=== PATIENT | female | born 1965 | race African-American/Black ===

== ENCOUNTER 2023-12-30 09:44 | Inpatient (IN) | payer OTHER ==
[~2023-12-30] VITALS: Ht 167.6 cm; Wt 64.5 kg
[~2023-12-30 09:44] MED LIST: BENADRYL; CLONIDINE; DILANTIN; KLONOPIN
[2023-12-30 10:29] LABS: CHLORIDE 104 mEq/L (98-107); POTASSIUM 3.9 mEq/L (3.5-5.1); SODIUM 131 mEq/L (136-145)
[2023-12-30 10:30] LABS: CALCIUM 8.7 mg/dL (8.7-10.4); CARBON DIOXIDE 19 mEq/L (21-32)
[2023-12-30 10:35] LABS: GLUCOSE 117 mg/dL (70-105); TROPONIN I HIGH SENSITIVITY 22 ng/L (3.0-34); UREA NITROGEN BLOOD 10 mg/dL (9-23)
[2023-12-30 10:36] LABS: ALANINE AMINOTRANSFERASE 17 IU/L (10-49); ASPARTATE AMINOTRANSFERASE 21 IU/L (<34)
[2023-12-30 10:37] LABS: ALBUMIN 3.5 g/dL (3.2-4.8); BILIRUBIN DIRECT 0.3 mg/dL (<=3.0); BILIRUBIN TOTAL 0.8 mg/dL (0.1-1.0); PROTEIN TOTAL 9.6 g/dL (6.0-8.3)
[2023-12-30] MEDS: LACTATED RINGERS 1,000 ML IV SCH (10:37)
[2023-12-30 10:40] LABS: CREATININE 1.3 mg/dL (0.6-1.0)
[2023-12-30 11:37] LABS: HEMATOCRIT. 37.1 % (36.0-48.0); HEMOGLOBIN. 11.9 g/dL (12.0-16.0); MEAN CORPUSCULAR HEMOGLOBIN 28.6 pg (28.0-32.0); MEAN CORPUSCULAR HGB CONC 32.1 g/dL (31.0-37.0); MEAN CORPUSCULAR VOLUME 88.9 fL (81.0-99.0); MEAN PLATELET VOLUME 8.6 fl (7.4-10.4); PLATELET 304 x1000/uL (130-400); RED BLOOD CELL COUNT 4.17 mill/uL (4.2-5.4); RED CELL DISTRIBUTION WIDTH 14.1 % (11.6-14.6); WHITE BLOOD COUNT 28.6 x1000/uL (4.5-11.0)
[2023-12-30 11:42] LABS: DIFFERENTIAL COMMENT 1
[2023-12-30 12:30] LABS: TROPONIN I HIGH SENSITIVITY 21 ng/L (3.0-34)
[2023-12-30] MEDS ORDERED: LACTATED RINGERS 650 ML IV SCH (12:30)
[2023-12-30] MEDS: NOREPINEPHRINE 8MG/250ML PMX 250 ML IV ONE (12:46)
[2023-12-30] MEDS: VANCOMYCIN 1G PREMIX 200 ML IV SCH (13:01)
[2023-12-30 13:20] LABS: INR 1.3; PROTHROMBIN TIME 14.2 sec (9.6-11.0)
[2023-12-30] MEDS ORDERED: PIPERACILLIN/TAZO 3.375G/50ML 50 ML IV SCH (14:00)
[2023-12-30 14:10] LABS: PLATELET ESTIMATE NORMAL
[2023-12-30] MEDS ORDERED: IPRATROPIUM/ALBUTEROL 0.5-3(2.5)MG/3ML NEB HHN PRN (14:15)
[2023-12-30] MEDS ORDERED: DEXTROSE 50% WATER 50ML SYRINGE IV PRN (14:15)
[2023-12-30 14:25] LABS: CLARITY URINE CLEAR (CLEAR); COLOR URINE YELLOW (YELLOW); GLUCOSE URINE NEGATIVE (NEGATIVE); KETONES URINE NEGATIVE (NEGATIVE); LEUKOCYTE ESTERASE URINE NEGATIVE (NEGATIVE); NITRITE URINE NEGATIVE (NEGATIVE); OCCULT BLOOD URINE 2+ (NEGATIVE); PH URINE 5.5 (4.5-8.0); PROTEIN URINE NEGATIVE (NEGATIVE); SPECIFIC GRAVITY URINE 1.009 (1.005-1.030)
[2023-12-30 14:42] LABS: HYALINE CASTS URINE TNTC /lpf
[2023-12-30 14:44] LABS: COARSE GRANULAR CASTS URINE 0-5 /lpf; FINE GRANULAR CASTS URINE 0-5 /lpf
[2023-12-30 14:47] LABS: WBC URINE 0-2 /hpf (0-2)
[2023-12-30 14:48] LABS: BACTERIA URINE 1+; SQUAMOUS EPITHELIAL CELL URINE 1+ /lpf (RARE/1+)
[2023-12-30] MEDS: CLOPIDOGREL 75MG TABLET PO SCH (15:26)
[2023-12-30] MEDS: AZITHROMYCIN 500MG/250ML 250 ML IV SCH (15:26)
[2023-12-30] MEDS: ASPIRIN 81MG TABLET PO SCH (15:26)
[2023-12-30] MEDS: INSULIN LISPRO 100 UNITS/ML SUBCUT SCH (16:00)
[2023-12-30] MEDS: BLOOD SUGAR DIAGNOSTIC STRIP TEST SCH (16:00)
[2023-12-30] MEDS: CEFEPIME 2GM/100ML 100 ML IV SCH (18:54)
[2023-12-30] MEDS: ATORVASTATIN CALCIUM 40MG TABLET PO SCH (21:00)
[2023-12-30 21:16] VITALS: BP 96/77; PULSE 100; RESP 21; TEMP 36.696
[2023-12-30] MEDS ORDERED: CEFEPIME 2GM IN DEXT 5% 100ML IV SCH (22:00)
[2023-12-30 22:46] VITALS: BP 106/84; PULSE 93; RESP 24; TEMP 36.6696; O2SAT 91
[2023-12-31] VITALS (7 sets, daily range): BP systolic 90–113; BP diastolic 67–87; PULSE 91–113; RESP 16–26; TEMP 36.78072–37.72524; O2SAT 89–95
[2023-12-31] MEDS: PANTOPRAZOLE SODIUM 40 MG/VIAL IV SCH (00:19)
[2023-12-31] MEDS: SODIUM CHLORIDE 0.9% 1,000 ML IV SCH (00:19)
[2023-12-31 16:24] LABS: BASOPHILS % 0.3 % (0.0-2.0); HEMATOCRIT. 35.4 % (36.0-48.0); HEMOGLOBIN. 11.6 g/dL (12.0-16.0); LYMPHOCYTES % 11.6 % (20.0-50.0); MEAN CORPUSCULAR HEMOGLOBIN 29.3 pg (28.0-32.0); MEAN CORPUSCULAR HGB CONC 32.9 g/dL (31.0-37.0); MEAN CORPUSCULAR VOLUME 89.1 fL (81.0-99.0); MEAN PLATELET VOLUME 8.9 fl (7.4-10.4); MONOCYTES % 8.6 % (2.0-8.0); NEUTROPHILS % 78.5 % (40.0-76.0); PLATELET 293 x1000/uL (130-400); RED BLOOD CELL COUNT 3.97 mill/uL (4.2-5.4); RED CELL DISTRIBUTION WIDTH 13.9 % (11.6-14.6); WHITE BLOOD COUNT 12.4 x1000/uL (4.5-11.0)
[2023-12-31 16:31] LABS: CHLORIDE 106 mEq/L (98-107); POTASSIUM 3.4 mEq/L (3.5-5.1); SODIUM 135 mEq/L (136-145)
[2023-12-31 16:32] LABS: CALCIUM 8.5 mg/dL (8.7-10.4); CARBON DIOXIDE 21 mEq/L (21-32)
[2023-12-31 16:37] LABS: CREATININE 0.7 mg/dL (0.6-1.0); GLUCOSE 84 mg/dL (70-105); UREA NITROGEN BLOOD 6 mg/dL (9-23)
[2023-12-31] MEDS: ENOXAPARIN 40MG/0.4ML SYR SUBCUT SCH (17:34)
[2023-12-31] MEDS ORDERED: LEVE500T19 PO (18:00)
[2023-12-31] MEDS: ATORVASTATIN CALCIUM 40MG TABLET PO SCH (20:16)
[2023-12-31] MEDS ORDERED: LEVETIRACETAM 500MG in NACL 100ML PREMIX IV SCH (21:00)
[2023-12-31] MEDS: LEVETIRACETAM 500MG PREMIX 100 ML IV SCH (21:41)
[2023-12-31] MEDS: VANCOMYCIN 1GM/200ML PMX (BAXTER) IV SCH (21:42)
[2024-01-01] VITALS (11 sets, daily range): BP systolic 89–104; BP diastolic 61–87; PULSE 86–109; RESP 17–29; TEMP 36.78072–37.00296; O2SAT 85–96
[2024-01-01] MEDS: CEFEPIME 2GM/100ML 100 ML IV SCH (14:18)
[2024-01-01] MEDS ORDERED: MIDODRINE HCL 5MG TABLET PO SCH (18:30)
[2024-01-02] VITALS: BP 98/74; PULSE 87; RESP 23; TEMP 36.83628; O2SAT 98
[2024-01-02 04:00] VITALS: BP 83/67; PULSE 95; RESP 18; TEMP 37.00296; O2SAT 96
[2024-01-02 06:28] LABS: BASOPHILS % 0.3 % (0.0-2.0); HEMATOCRIT. 34.2 % (36.0-48.0); HEMOGLOBIN. 11.2 g/dL (12.0-16.0); LYMPHOCYTES % 13.5 % (20.0-50.0); MEAN CORPUSCULAR HEMOGLOBIN 28.7 pg (28.0-32.0); MEAN CORPUSCULAR HGB CONC 32.8 g/dL (31.0-37.0); MEAN CORPUSCULAR VOLUME 87.5 fL (81.0-99.0); MEAN PLATELET VOLUME 8.3 fl (7.4-10.4); MONOCYTES % 9.6 % (2.0-8.0); NEUTROPHILS % 75.6 % (40.0-76.0); PLATELET 291 x1000/uL (130-400); RED BLOOD CELL COUNT 3.92 mill/uL (4.2-5.4); RED CELL DISTRIBUTION WIDTH 13.7 % (11.6-14.6); WHITE BLOOD COUNT 8.9 x1000/uL (4.5-11.0)
[2024-01-02 06:37] LABS: CHLORIDE 106 mEq/L (98-107); POTASSIUM 3.1 mEq/L (3.5-5.1); SODIUM 133 mEq/L (136-145)
[2024-01-02 06:38] LABS: CALCIUM 8.7 mg/dL (8.7-10.4); CARBON DIOXIDE 20 mEq/L (21-32)
[2024-01-02 06:43] LABS: CREATININE 0.7 mg/dL (0.6-1.0); GLUCOSE 127 mg/dL (70-105); UREA NITROGEN BLOOD 6 mg/dL (9-23)
[2024-01-02 08:00] VITALS: BP 103/83; PULSE 100; RESP 15; TEMP 37.00296; O2SAT 91
[2024-01-02] MEDS: FAMOTIDINE 20MG/2ML VIAL IV SCH (08:35)
[2024-01-02] MEDS ORDERED: FENTANYL CITRATE/PF 50MCG/ML 2ML VIAL ONE (09:28)
[2024-01-02] MEDS ORDERED: MIDAZOLAM HCL 2 MG/2 ML VIAL ONE ×2 (09:28→09:53)
[2024-01-02] MEDS ORDERED: TETRACAINE/BENZOCAINE/BUTAMBEN 20 GM SPRAY MM ONE (09:29)
[2024-01-02] MEDS ORDERED: LIDOCAINE 2% 6ML GLYDO MM ONE (09:36)
[2024-01-02] MEDS ORDERED: DIPHENHYDRAMINE 50MG/ML VIAL ONE (09:52)
[2024-01-02 11:58] VITALS: BP 98/73; PULSE 79; RESP 20; TEMP 36.33624; O2SAT 99
[2024-01-02] MEDS: VANCOMYCIN 750MG PREMIX 150 ML IV SCH (12:45)
[2024-01-02] MEDS: POTASSIUM CHLORIDE 20MEQ/PACKET PO NR (15:19)
[2024-01-02 16:00] VITALS: BP 96/75; PULSE 90; RESP 20; TEMP 37.05852
[2024-01-02 20:00] VITALS: BP 124/101; PULSE 102; RESP 19; TEMP 37.2252; O2SAT 98
[2024-01-03] VITALS (12 sets, daily range): BP systolic 85–119; BP diastolic 58–91; PULSE 86–194; RESP 16–25; TEMP 36.3918–36.55848; O2SAT 92–98
[2024-01-03] MEDS: QUETIAPINE FUMARATE 50MG TABLET PO SCH (17:37)
[2024-01-04] VITALS (7 sets, daily range): BP systolic 112–143; BP diastolic 71–97; PULSE 70–100; RESP 16–22; TEMP 36.05844–37.16964; O2SAT 94–99
[2024-01-04 16:13] LABS: BASOPHILS % 0.4 % (0.0-2.0); EOSINOPHILS % 1.1 % (0.0-5.0); HEMOGLOBIN. 11.1 g/dL (12.0-16.0); LYMPHOCYTES % 27.1 % (20.0-50.0); MEAN CORPUSCULAR HEMOGLOBIN 29.5 pg (28.0-32.0); MEAN CORPUSCULAR HGB CONC 33.7 g/dL (31.0-37.0); MEAN CORPUSCULAR VOLUME 87.6 fL (81.0-99.0); MEAN PLATELET VOLUME 8.5 fl (7.4-10.4); MONOCYTES % 11.3 % (2.0-8.0); NEUTROPHILS % 60.1 % (40.0-76.0); PLATELET 306 x1000/uL (130-400); RED BLOOD CELL COUNT 3.77 mill/uL (4.2-5.4); RED CELL DISTRIBUTION WIDTH 14.4 % (11.6-14.6); WHITE BLOOD COUNT 6.8 x1000/uL (4.5-11.0)
[2024-01-04 16:27] LABS: CHLORIDE 106 mEq/L (98-107); POTASSIUM 3.3 mEq/L (3.5-5.1); SODIUM 137 mEq/L (136-145)
[2024-01-04 16:29] LABS: CALCIUM 8.8 mg/dL (8.7-10.4); CARBON DIOXIDE 23 mEq/L (21-32)
[2024-01-04 16:33] LABS: CREATININE 0.6 mg/dL (0.6-1.0)
[2024-01-04 16:34] LABS: GLUCOSE 93 mg/dL (70-105); UREA NITROGEN BLOOD 7 mg/dL (9-23)
[2024-01-04] MEDS: CEFAZOLIN 2GM/100ML 100 ML IV SCH (22:43)
[2024-01-05] VITALS: BP 131/90; PULSE 79; RESP 20; TEMP 37.00296; O2SAT 98
[2024-01-05 04:00] VITALS: BP 132/81; PULSE 97; RESP 20; TEMP 36.89184; O2SAT 96
[2024-01-05 08:00] VITALS: BP 128/90; PULSE 89; RESP 18; TEMP 36.55848; O2SAT 97
[2024-01-05 12:00] VITALS: BP 123/88; PULSE 112; RESP 18; TEMP 36.44736; O2SAT 98
[2024-01-05 16:00] VITALS: BP 108/85; PULSE 98; RESP 18; TEMP 36.55848; O2SAT 97
[2024-01-05 20:53] VITALS: BP 131/90; PULSE 86; RESP 16; TEMP 36.28068
[2024-01-05] MEDS: POTASSIUM CHLORIDE 20MEQ TABLET SR PO NR (21:33)
[2024-01-06] VITALS: BP 118/87; PULSE 88; RESP 16; TEMP 36.3918; O2SAT 100
[2024-01-06 05:30] VITALS: BP 120/78; PULSE 90; RESP 20; TEMP 36.55848; O2SAT 100
[2024-01-06 08:00] VITALS: BP 124/91; PULSE 81; RESP 19; TEMP 36.33624; O2SAT 95
[2024-01-06 12:00] VITALS: BP 130/97; PULSE 94; RESP 19; TEMP 35.2806; O2SAT 96
[2024-01-06 16:00] VITALS: BP 124/94; PULSE 94; RESP 20; TEMP 36.61404; O2SAT 95
[2024-01-06 17:58] LABS: BASOPHILS % 1.1 % (0.0-2.0); EOSINOPHILS % 1.4 % (0.0-5.0); HEMATOCRIT. 39.6 % (36.0-48.0); HEMOGLOBIN. 12.8 g/dL (12.0-16.0); LYMPHOCYTES % 46.5 % (20.0-50.0); MEAN CORPUSCULAR HEMOGLOBIN 29.4 pg (28.0-32.0); MEAN CORPUSCULAR HGB CONC 32.3 g/dL (31.0-37.0); MEAN CORPUSCULAR VOLUME 90.9 fL (81.0-99.0); MEAN PLATELET VOLUME 9.4 fl (7.4-10.4); MONOCYTES % 10.3 % (2.0-8.0); NEUTROPHILS % 40.7 % (40.0-76.0); PLATELET 286 x1000/uL (130-400); RED BLOOD CELL COUNT 4.35 mill/uL (4.2-5.4); RED CELL DISTRIBUTION WIDTH 14.9 % (11.6-14.6); WHITE BLOOD COUNT 7.3 x1000/uL (4.5-11.0)
[2024-01-06 20:00] VITALS: BP_SYST 125; BP_DIAS 89; BP_DIAS 99; PULSE 75; PULSE 78; RESP 19; RESP 20; TEMP 36.3918; O2SAT 97
[2024-01-07] VITALS: BP 149/85; PULSE 94; RESP 18; TEMP 36.28068; O2SAT 98
[2024-01-07 04:00] VITALS: BP 129/91; PULSE 85; RESP 20; TEMP 36.16956; O2SAT 96
[2024-01-07 08:00] VITALS: BP 115/78; PULSE 84; RESP 18; TEMP 36.44736; O2SAT 95
[2024-01-07 12:00] VITALS: BP 139/99; PULSE 95; RESP 18; TEMP 36.44736; O2SAT 97
[2024-01-07 16:00] VITALS: BP 124/83; PULSE 93; RESP 16; TEMP 36.72516; O2SAT 98
[2024-01-07 20:00] VITALS: BP 135/94; PULSE 83; RESP 20; TEMP 36.55848; O2SAT 93
[2024-01-08] VITALS: BP 120/83; PULSE 85; RESP 20; TEMP 36.28068; O2SAT 100
[2024-01-08 04:00] VITALS: BP 122/82; PULSE 85; RESP 20; TEMP 36.28068; O2SAT 100
[2024-01-08 08:00] VITALS: BP 139/80; PULSE 82; RESP 18; TEMP 37.16964; O2SAT 98
[2024-01-08 08:21] VITALS: BP 122/82; PULSE 85; TEMP 97.3; O2SAT 100
== END 2024-01-08 10:30 | DRG 720 ==
LOC: ER 09:44 → EDBEDREQSVC 18:17 → 5EST 20:31 → 7WST 01-04 11:27
PROVIDERS: ADMIT Internal Medicine; ATTEND Internal Medicine
DX: A41.01 Sepsis due to Methicillin susceptible Staphylococcus aureus (principal); J69.0 Pneumonitis due to inhalation of food and vomit; R65.21 Severe sepsis with septic shock; I21.4 Non-ST elevation (NSTEMI) myocardial infarction; G92.8 Other toxic encephalopathy; N17.9 Acute kidney failure, unspecified; E87.1 Hypo-osmolality and hyponatremia; D64.9 Anemia, unspecified; E11.9 Type 2 diabetes mellitus without complications; I42.9 Cardiomyopathy, unspecified; I11.0 Hypertensive heart disease with heart failure; E78.5 Hyperlipidemia, unspecified; E87.6 Hypokalemia; F03.90 Unspecified dementia, unspecified severity, without behavioral disturbance, psychotic disturbance, mood disturbance, and anxiety; G40.909 Epilepsy, unspecified, not intractable, without status epilepticus; I25.10 Atherosclerotic heart disease of native coronary artery without angina pectoris; I50.22 Chronic systolic (congestive) heart failure; Z95.1 Presence of aortocoronary bypass graft; Z95.5 Presence of coronary angioplasty implant and graft; Z79.899 Other long term (current) drug therapy
CPT/HCPCS: 36415; 71045; 80048; 80076; 80202; 81003; 82962; 83036; 83880; 84145; 84484; 85025; 87077; 87186; 93005; 93312; 99291; C1893; J0456; J0690; J0692; J1200; J1650; J1953; J2250; J2470; J3010; J3370; J3490

== ENCOUNTER 2024-04-19 22:35 | Inpatient (IN) | payer OTHER ==
[~2024-04-19] VITALS: Ht 167.6 cm; Wt 56.9 kg
[~2024-04-19 22:35] MED LIST changes: -BENADRYL; -CLONIDINE; -DILANTIN; -KLONOPIN; +LEVE500T19 PO
[2024-04-19] MEDS: SODIUM CHLORIDE 0.9% 1,000 ML IV ONE (23:15)
[2024-04-20 00:18] LABS: CHLORIDE 106 mEq/L (98-107); POTASSIUM 3.3 mEq/L (3.5-5.1); SODIUM 142 mEq/L (136-145)
[2024-04-20 00:19] LABS: CALCIUM 9.2 mg/dL (8.7-10.4); CARBON DIOXIDE 27 mEq/L (21-32)
[2024-04-20 00:24] LABS: CREATININE 1.2 mg/dL (0.6-1.0); GLUCOSE 114 mg/dL (70-105); INR 1.1; PROTHROMBIN TIME 11.7 sec (9.6-11.0); UREA NITROGEN BLOOD 12 mg/dL (9-23)
[2024-04-20 00:25] LABS: TROPONIN I HIGH SENSITIVITY 11 ng/L (3.0-34)
[2024-04-20 00:26] LABS: LACTIC ACID 2.2 mmol/L (0.4-2.0)
[2024-04-20 00:34] LABS: ETHANOL BLOOD < 10 mg/dL (<10)
[2024-04-20 00:37] LABS: BASOPHILS % 0.5 % (0.0-2.0); EOSINOPHILS % 5.3 % (0.0-5.0); HEMATOCRIT. 41.7 % (36.0-48.0); HEMOGLOBIN. 13.6 g/dL (12.0-16.0); LYMPHOCYTES % 27.9 % (20.0-50.0); MEAN CORPUSCULAR HEMOGLOBIN 29.5 pg (28.0-32.0); MEAN CORPUSCULAR HGB CONC 32.7 g/dL (31.0-37.0); MEAN CORPUSCULAR VOLUME 90.2 fL (81.0-99.0); MEAN PLATELET VOLUME 9.6 fl (7.4-10.4); MONOCYTES % 9.9 % (2.0-8.0); NEUTROPHILS % 56.4 % (40.0-76.0); PLATELET 306 x1000/uL (130-400); RED BLOOD CELL COUNT 4.62 mill/uL (4.2-5.4); RED CELL DISTRIBUTION WIDTH 14.9 % (11.6-14.6); WHITE BLOOD COUNT 9.6 x1000/uL (4.5-11.0)
[2024-04-20] MEDS: CEFTRIAXONE 1GM/50ML 50 ML IV ONE (01:30)
[2024-04-20] MEDS: SODIUM CHLORIDE 0.9% (SEPSIS BOLUS) IV ONE (01:30)
[2024-04-20] MEDS ORDERED: ACETAMINOPHEN 325MG TABLET PO PRN ×2 (05:15)
[2024-04-20] MEDS ORDERED: IPRATROPIUM/ALBUTEROL 0.5-3(2.5)MG/3ML NEB HHN PRN (05:15)
[2024-04-20] MEDS ORDERED: CLONIDINE 0.1MG TABLET PO PRN (05:15)
[2024-04-20] MEDS ORDERED: MAGNESIUM/ALUMINUM HYDROXIDE/SIMETHICONE 30ML UDC PO PRN (05:15)
[2024-04-20] MEDS ORDERED: ONDANSETRON HCL 4MG/2ML INJ IV PRN (05:15)
[2024-04-20] MEDS ORDERED: POTASSIUM CHLORIDE 40 MEQ in DEXT 5% WATER 230 ML IV ONE (06:00)
[2024-04-20 06:26] LABS: TRIGLYCERIDE 140 mg/dL (0-150)
[2024-04-20 06:27] LABS: LDL CHOLESTEROL 142 mg/dL (5-100)
[2024-04-20 06:28] LABS: CHOLESTEROL 204 mg/dL (<200); HDL CHOLESTEROL 36 mg/dL (>65); PHOSPHORUS 3.8 mg/dL (2.5-4.9)
[2024-04-20] MEDS: DEXT 5%/0.45% NACL 1000ML 1,000 ML IV SCH (07:00)
[2024-04-20] MEDS: KCL 20MEQ/100ML X 2 FOR TOTAL KCL 40MEQ/200ML IV SCH (08:04)
[2024-04-20] MEDS ORDERED: ENOXAPARIN 40MG/0.4ML SYR SUBCUT SCH (09:00)
[2024-04-20] MEDS: CLOPIDOGREL 75MG TABLET PO SCH (09:52)
[2024-04-20] MEDS: PANTOPRAZOLE SODIUM 40 MG/VIAL IV SCH (09:52)
[2024-04-20] MEDS: ASPIRIN 81MG EC TABLET PO SCH (09:52)
[2024-04-20 12:00] VITALS: BP 133/88; PULSE 78; RESP 18; TEMP 37.16964; O2SAT 99
[2024-04-20] MEDS: LOSARTAN 25 MG TABLET PO SCH (15:22)
[2024-04-20 16:00] VITALS: BP 144/95; PULSE 75; RESP 17; TEMP 36.6696; O2SAT 96
[2024-04-20 17:51] LABS: CREATINE KINASE 53 IU/L (34-145)
[2024-04-20 20:00] VITALS: BP 92/65; PULSE 53; RESP 18; TEMP 36.3918; O2SAT 84
[2024-04-20] MEDS: DIVALPROEX SODIUM 125MG SPRINKLE CAPSULE PO SCH (21:47)
[2024-04-20] MEDS: ATORVASTATIN CALCIUM 40MG TABLET PO SCH (21:48)
[2024-04-20] MEDS: FAMOTIDINE 20MG TABLET PO SCH (21:48)
[2024-04-21] VITALS: BP 138/84; PULSE 67; RESP 18; TEMP 36.3918; O2SAT 99
[2024-04-21 04:00] VITALS: BP 138/84; PULSE 71; RESP 18; TEMP 36.33624; O2SAT 84
[2024-04-21 08:00] VITALS: BP 148/91; PULSE 69; RESP 18; TEMP 36.3918; O2SAT 95
[2024-04-21 09:13] LABS: BASOPHILS % 0.8 % (0.0-2.0); EOSINOPHILS % 6.2 % (0.0-5.0); HEMATOCRIT. 46.1 % (36.0-48.0); HEMOGLOBIN. 14.9 g/dL (12.0-16.0); MEAN CORPUSCULAR HEMOGLOBIN 29.2 pg (28.0-32.0); MEAN CORPUSCULAR HGB CONC 32.2 g/dL (31.0-37.0); MEAN CORPUSCULAR VOLUME 90.7 fL (81.0-99.0); MEAN PLATELET VOLUME 9.2 fl (7.4-10.4); MONOCYTES % 9.3 % (2.0-8.0); NEUTROPHILS % 55.7 % (40.0-76.0); PLATELET 267 x1000/uL (130-400); RED BLOOD CELL COUNT 5.08 mill/uL (4.2-5.4)
[2024-04-21 09:27] LABS: CHLORIDE 110 mEq/L (98-107); SODIUM 141 mEq/L (136-145)
[2024-04-21 09:28] LABS: CARBON DIOXIDE 22 mEq/L (21-32)
[2024-04-21 09:29] LABS: CALCIUM 9.5 mg/dL (8.7-10.4)
[2024-04-21 09:34] LABS: CREATININE 0.8 mg/dL (0.6-1.0); GLUCOSE 83 mg/dL (70-105); UREA NITROGEN BLOOD 9 mg/dL (9-23)
[2024-04-21 09:35] LABS: ALANINE AMINOTRANSFERASE 18 IU/L (10-49); ALBUMIN 3.9 g/dL (3.2-4.8); ASPARTATE AMINOTRANSFERASE 23 IU/L (<34)
[2024-04-21 09:36] LABS: BILIRUBIN TOTAL 0.5 mg/dL (0.1-1.0); PROTEIN TOTAL 8.2 g/dL (6.0-8.3); THYROID STIMULATING HORMONE 0.72 uIU/mL (0.55-4.78)
[2024-04-21 09:37] LABS: T4 FREE 1.15 ng/dL (0.89-1.76)
[2024-04-21 09:43] LABS: BILIRUBIN DIRECT < 0.1 mg/dL (<=3.0)
[2024-04-21] MEDS: SPIRONOLACTONE 25MG TABLET PO SCH (09:55)
[2024-04-21 12:00] VITALS: BP 145/98; PULSE 71; RESP 18; TEMP 36.55848; O2SAT 95
[2024-04-21 16:00] VITALS: BP 161/118; PULSE 90; RESP 17; TEMP 36.78072; O2SAT 96
[2024-04-21 20:00] VITALS: BP 159/99; PULSE 74; RESP 19; TEMP 36.33624; O2SAT 99
[2024-04-22] VITALS (8 sets, daily range): BP systolic 95–140; BP diastolic 65–83; PULSE 64–89; RESP 16–19; TEMP 36.16956–36.72516; O2SAT 95–99
[2024-04-22] MEDS ORDERED: LOSARTAN 50 MG TABLET PO SCH (09:00)
[2024-04-22] MEDS: LOSARTAN 50 MG TABLET PO SCH (09:10)
[2024-04-22 09:28] LABS: CHLORIDE 109 mEq/L (98-107); POTASSIUM 4.1 mEq/L (3.5-5.1); SODIUM 140 mEq/L (136-145)
[2024-04-22 09:29] LABS: CALCIUM 9.5 mg/dL (8.7-10.4); CARBON DIOXIDE 23 mEq/L (21-32)
[2024-04-22 09:34] LABS: CREATININE 0.8 mg/dL (0.6-1.0); GLUCOSE 78 mg/dL (70-105); UREA NITROGEN BLOOD 13 mg/dL (9-23)
[2024-04-22 09:35] LABS: BASOPHILS % 0.5 % (0.0-2.0); EOSINOPHILS % 5.7 % (0.0-5.0); HEMATOCRIT. 47.1 % (36.0-48.0); HEMOGLOBIN. 15.2 g/dL (12.0-16.0); LYMPHOCYTES % 23.5 % (20.0-50.0); MEAN CORPUSCULAR HEMOGLOBIN 29.3 pg (28.0-32.0); MEAN CORPUSCULAR HGB CONC 32.3 g/dL (31.0-37.0); MEAN CORPUSCULAR VOLUME 90.8 fL (81.0-99.0); MEAN PLATELET VOLUME 9.2 fl (7.4-10.4); MONOCYTES % 7.7 % (2.0-8.0); NEUTROPHILS % 62.6 % (40.0-76.0); PLATELET 293 x1000/uL (130-400); RED BLOOD CELL COUNT 5.18 mill/uL (4.2-5.4); RED CELL DISTRIBUTION WIDTH 14.8 % (11.6-14.6); WHITE BLOOD COUNT 8.4 x1000/uL (4.5-11.0)
[2024-04-23] VITALS: BP 101/61; PULSE 76; RESP 19; TEMP 36.16956; O2SAT 98
[2024-04-23 04:00] VITALS: BP 102/75; PULSE 80; RESP 19; TEMP 36.33624; O2SAT 96
[2024-04-23 08:00] VITALS: BP 123/84; PULSE 70; RESP 18; TEMP 36.33624; O2SAT 98
[2024-04-23 12:00] VITALS: BP 113/79; PULSE 75; RESP 18; TEMP 36.33624; O2SAT 98
[2024-04-23 15:54] VITALS: BP 120/79; PULSE 75; RESP 18; TEMP 36.33624; O2SAT 98
[2024-04-23 20:00] VITALS: BP 110/65; PULSE 84; RESP 19; TEMP 36.61404; O2SAT 95
[2024-04-24] VITALS: BP 112/83; PULSE 82; RESP 19; TEMP 36.55848; O2SAT 98
[2024-04-24 04:00] VITALS: BP 106/24; PULSE 84; RESP 20; TEMP 36.33624; O2SAT 98
[2024-04-24 08:00] VITALS: BP 142/102; PULSE 95; RESP 20; TEMP 36.00288; O2SAT 96
[2024-04-24 09:23] LABS: HEMATOCRIT 47.1 % (36.0-48.0); HEMOGLOBIN 15.5 g/dL (12.0-16.0); MEAN CORPUSCULAR HEMOGLOBIN 29.4 pg (28.0-32.0); MEAN CORPUSCULAR VOLUME 89.3 fL (81.0-99.0); PLATELET 317 x1000/uL (130-400); RED BLOOD CELL COUNT 5.28 mill/uL (4.2-5.4); RED CELL DISTRIBUTION WIDTH 14.9 % (11.6-14.6); WHITE BLOOD COUNT 6.3 x1000/uL (4.5-11.0)
[2024-04-24 10:11] LABS: CARBON DIOXIDE 26 mEq/L (21-32); CHLORIDE 106 mEq/L (98-107); POTASSIUM 4.3 mEq/L (3.5-5.1); SODIUM 139 mEq/L (136-145)
[2024-04-24 10:12] LABS: CALCIUM 9.6 mg/dL (8.7-10.4)
[2024-04-24 10:17] LABS: CREATININE 0.8 mg/dL (0.6-1.0); GLUCOSE 75 mg/dL (70-105); UREA NITROGEN BLOOD 17 mg/dL (9-23)
[2024-04-24 12:00] VITALS: BP 114/78; PULSE 76; RESP 18; TEMP 36.61404; O2SAT 96
[2024-04-24 15:54] VITALS: BP 114/78; PULSE 76; TEMP 97.9; O2SAT 96
[2024-04-24] MEDS ORDERED: VANCOMYCIN 1.25GM PMX (XELLIA) 250 ML IV SCH (16:30)
[2024-04-25] MEDS ORDERED: VANCOMYCIN 750MG/150ML (BAXTER) IV SCH (05:00)
== END 2024-04-24 18:00 | disposition home or self-care (01) | DRG 48 ==
LOC: ER 22:35 → 5WST 04-20 01:36 → 7WST 04-22 09:34
PROVIDERS: ADMIT Preventive Medicine Clinical Informatics; ATTEND Preventive Medicine Clinical Informatics
DX: G90.89 Other disorders of autonomic nervous system (principal); G92.8 Other toxic encephalopathy; N17.9 Acute kidney failure, unspecified; E87.20 Acidosis, unspecified; I50.22 Chronic systolic (congestive) heart failure; I11.0 Hypertensive heart disease with heart failure; E87.6 Hypokalemia; G40.909 Epilepsy, unspecified, not intractable, without status epilepticus; E78.5 Hyperlipidemia, unspecified; F03.90 Unspecified dementia, unspecified severity, without behavioral disturbance, psychotic disturbance, mood disturbance, and anxiety; J44.9 Chronic obstructive pulmonary disease, unspecified; Z91.148 Patient's other noncompliance with medication regimen for other reason; Z79.02 Long term (current) use of antithrombotics/antiplatelets; Z79.82 Long term (current) use of aspirin; Z79.899 Other long term (current) drug therapy; Z86.73 Personal history of transient ischemic attack (TIA), and cerebral infarction without residual deficits; I25.2 Old myocardial infarction
CPT/HCPCS: 36415; 71045; 80048; 80061; 80076; 80320; 82550; 83605; 83735; 83880; 84100; 84132; 84145; 84439; 84443; 84484; 85025; 85027; 86850; 86900; 87077; 87186; 93005; 93306; 93880; 99285; J0696; J2470; J3370; J3480; J7030; G0480